=== PATIENT | female | born 1980 | race Caucasian/White ===

== ENCOUNTER 2017-08-09 14:49 | Outpatient (CLI) | payer OTHER ==
--- NOTE | 2017-08-10 19:07 | MRI Report ---
EXAM: RIGHT KNEE MRI WITHOUT CONTRAST EXAM DATE: 08/09/2017 03:51 PM. CLINICAL HISTORY: Chronic instability of knee, right knee. COMPARISON: None. TECHNIQUE: Multiplanar, multisequence T1-weighted and fluid-sensitive sequences of the knee without c ontrast. Other: None. FINDINGS: Bones: No fractures or subluxations. No marrow edema. No bone lesions. Articular Cartilage: Unremarkable. Medial Meniscus: The medial meniscus is intact. Lateral Meniscus: The lateral meniscus is intact. Cruciate Ligaments: The anterior and posterior cruciate ligaments are intact. Collateral Ligaments: The medial collateral and lateral collateral ligamentous structures are intact. Tendons: The quadriceps, patellar, semimembranosus, and popliteus tendons are unremarkable. Musculature: No edema or fatty atrophy. Other: No effusion. No popliteal cyst. No loose bodies. The medial and lateral retinacula are intact. The subcutaneous tissues and fat pads are unremarkable. IMPRESSION: No MRI abnormalities in the knee. [facility] MUSCULOSKE[facility] SECTION Referring Provider Line: [phone] SITE ID: [id number]
== END 2017-08-09 14:50 | disposition home or self-care (01) ==
LOC: DI 14:49
PROVIDERS: ATTEND Family Medicine
DX: M23.51 Chronic instability of knee, right knee (principal)

== ENCOUNTER 2019-04-16 14:46 | Outpatient (CLI) | payer OTHER ==
--- NOTE | 2019-04-17 10:56 | MRI Report ---
Reason: PAIN IN LT KNEE, INSTABILITY KNEE Procedure Date: 04/16/2019 Accession Number: [id number] / [id number] Procedure: MRI - Knee LT W/O CPT Code: Final Report FULL RESULT: EXAM: LEFT KNEE MRI WITHOUT CONTRAST EXAM DATE: 04/16/2019 02:49 PM. CLINICAL HISTORY: Pain in left knee, instability knee. COMPARISON: KNEE RT W/O 08/09/2017 3:00 PM. TECHNIQUE: Multiplanar, multisequence T1-weighted and fluid-sensitive sequences of the knee without contrast. Other: None. FINDINGS: Bones: There is some mild trabecular sclerosis/thickening in the posterolateral tibial plateau but no marrow edema. Possibly old injury. Bony alignment normal. No acute fracture or marrow edema seen. 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 Medial Meniscus: The medial meniscus is intact. Lateral Meniscus: The lateral meniscus is intact. Cruciate Ligaments: The anterior and posterior cruciate ligaments are intact. Collateral Ligaments: The medial collateral and lateral collateral ligamentous structures are intact. Tendons: The quadriceps, patellar, semimembranosus, and popliteus tendons are unremarkable. Musculature: No edema or fatty atrophy. Other: No effusion. No popliteal cyst. No loose bodies. The medial and lateral retinacula are intact. Minimal infrapatellar soft tissue edema. IMPRESSION: 1. No evidence of acute fracture or marrow edema. No evidence of internal derangement. 2. Small focus of moderate chondromalacia in the inferolateral patella. 3. Mild infrapatellar subcutaneous edema. [facility]
== END 2019-04-16 14:47 | disposition home or self-care (01) ==
LOC: DI 14:46
PROVIDERS: ATTEND Family Medicine
DX: M25.362 Other instability, left knee (principal); M22.42 Chondromalacia patellae, left knee

== ENCOUNTER 2019-04-22 12:28 | Outpatient (CLI) | payer OTHER ==
[2019-04-22] MEDS ORDERED: BUFFERED LIDOCAINE 10 ML SYRINGE ONE (12:33)
[2019-04-22] MEDS ORDERED: GADOBUTROL 10 MMOL/10 ML VIAL ONE (12:34)
[2019-04-22] MEDS ORDERED: IOTHALAMATE MEGLUMINE 50 ML VIAL ONE (12:34)
[2019-04-22] MEDS ORDERED: IOTHALAMATE MEGLUMINE 50 ML VIAL IVP ONE (14:24)
[2019-04-22] MEDS ORDERED: GADOBUTROL 10 MMOL/10 ML VIAL IVP ONE (14:24)
[2019-04-22] MEDS ORDERED: BUFFERED LIDOCAINE 10 ML SYRINGE IU ONE (14:24)
--- NOTE | 2019-04-22 15:46 | XRAY Report ---
Reason: SUPERFICIAL INJURY OF RT SHOULDER, GLENOID LABRUM Procedure Date: 04/22/2019 Accession Number: [id number] / [id number] Procedure: FL - Arthrogram Needle Placement CPT Code: Final Report FULL RESULT: EXAM: RIGHT SHOULDER ARTHROGRAPHIC INJECTION WITH FLUOROSCOPIC GUIDANCE EXAM DATE: 04/22/2019 02:22 PM. CLINICAL HISTORY: Superficial injury of right shoulder, glenoid labrum. COMPARISON: ARTHROGRAM SHOULDER RT 04/22/2019 1:40 PM. TECHNIQUE: The risks, benefits, and alternatives of the procedure were discussed with the patient. All questions were answered. Written and verbal consent were obtained. The glenohumeral joint was marked under fluoroscopy and prepped and draped in a sterile manner. Local anesthesia was performed with 1% lidocaine. A 22-gauge needle was then inserted into the glenohumeral joint. 10 mL of a solution containing 25% 1% lidocaine, 25% iodinated contrast, and a 1:200 dilution of gadolinium contrast in sterile saline was then injected. The needle was removed without immediate complication. Other: None. Fluoroscopy Time: 0.1 minutes. Number of Images: 11. FINDINGS: Bones and joints: No fracture or subluxation. Injection: Fluoroscopic images demonstrate needle placement and contrast in what was felt to be the glenohumeral joint. Review of subsequent MRI images reveals this to be the bursa with the contrast investing tissue surrounding the joint capsule. IMPRESSION: Fluoroscopically guided arthrographic injection of the shoulder as described. [facility]
--- NOTE | 2019-04-22 18:58 | MRI Report ---
Reason: SUPERFICIAL INJURY OF RT SHOULDER, GLENOID LABRUM Procedure Date: 04/22/2019 Accession Number: [id number] / [id number] Procedure: MRI - Arthrogram Shoulder RT CPT Code: Final Report FULL RESULT: EXAM: RIGHT SHOULDER MRI ARTHROGRAM WITH CONTRAST EXAM DATE: 04/22/2019 02:02 PM. CLINICAL HISTORY: Superficial right shoulder injury of the glenoid. Evaluate labrum. COMPARISON: None. TECHNIQUE: Multiplanar, multisequence T1-weighted and fluid-sensitive sequences of the shoulder after an arthrographic injection of dilute gadolinium, dictated under a separate exam. Other: None. FINDINGS: Acromioclavicular Region: The acromion is type I. The acromioclavicular joint is unremarkable. The coracoacromial and coracoclavicular ligaments are intact. Subdeltoid subacromial bursa contrasts injection. Glenohumeral Region: No subluxation. No loose bodies. The articular cartilage is unremarkable. The glenohumeral ligaments and joint capsule are unremarkable. Bone Marrow: Shallow superolateral humerus head Hill-Sachs deformity 1.3 cm in AP dimension and 2.4 mm in depth with associated marrow edema. Hill-Sachs deformity 10% surface area articular cortex. Labrum: Displaced anterior labrum tear axial proton density fat saturation sequence. Biceps Tendon: The long head of the biceps tendon and biceps jan are intact. Musculature/Rotator Cuff: Negative for infraspinous tendon tear. Intact teres minor tendon. Negative for subscapularis tendon tear. There is a mild surface irregularity or fraying bursal surface supraspinatus tendon (image 16 series 801). Negative for rotator cuff tear. No edema or fatty atrophy. Other: The subcutaneous tissues are unremarkable. IMPRESSION: 1. Displaced anterior labrum tear. 2. Subacromial subdeltoid bursa injection of arthrogram contrast. 3. Negative for rotator cuff tear. 4. Shallow superior lateral humerus head Hill-Sachs deformity (estimated 10% circumferential cortical surface area humerus head). [facility]
== END 2019-04-22 12:29 | disposition home or self-care (01) ==
LOC: DI 12:28
PROVIDERS: ATTEND Family Medicine
DX: S43.491A Other sprain of right shoulder joint, initial encounter (principal); M21.821 Other specified acquired deformities of right upper arm
CPT/HCPCS: 23350; 73222; 77002; A9585; Q9961